=== PATIENT | female | born 1960 | race Two or more races ===

== ENCOUNTER 2021-08-04 22:57 | Emergency (ER) | payer MEDICARE, OTHER ==
[~2021-08-04] VITALS: Ht 157.5 cm; Wt 61.2 kg
[2021-08-05 01:04] LABS: White Blood Cell 11.8 10^3/uL (4.4-10.8)
[2021-08-05 01:06] LABS: Basophils # (auto) 0.1 10 ^3/uL (0-0.2); Basophils % (auto) 0.7 % (0.0-2.0); Eosinophils # (auto) 0.2 10 ^3/uL (0-0.8); Eosinophils % (auto) 2.1 % (0.0-7.0); Hemoglobin 12.1 g/dL (12.2-16.2); Lymphocytes # (auto) 2.8 10 ^3/uL (0.4-5.4); Lymphocytes % (auto) 23.8 % (10.0-50.0); Mean Corpuscular Hgb Conc. 33.6 g/dL (32.0-36.0); Mean Corpuscular Volume 83.2 fL (80.0-100.0); Monocytes # (auto) 0.8 10 ^3/uL (0-1.3); Monocytes % (auto) 6.8 % (0.0-12.0); Neutrophils # (auto) 7.9 10 ^3/uL (1.6-8.6); Neutrophils % (auto) 66.6 % (37.0-80.0); Red Blood Cells 4.32 10^6/uL (4.0-5.20)
[2021-08-05 01:20] LABS: INR 0.99 (0.9-1.15); Partial Thromboplastin Time 28.6 sec (23.6-33.0)
[2021-08-05 01:29] LABS: Albumin 3.3 g/dL (3.4-5.0); BUN/Creatinine Ratio 17.1; Calcium 8.6 mg/dL (8.5-10.1); Potassium 4.5 mmol/L (3.5-5.1)
[2021-08-05 01:32] LABS: Bilirubin, Total 0.2 mg/dL (0.2-1.0); Total Protein 7.7 g/dL (6.4-8.2)
[2021-08-05] MEDS ORDERED: methylPREDNISolone SOD SUCC 125 MG/2 ML VL IV ONE ×2 (04:45)
[2021-08-05] MEDS ORDERED: PRED20TA2 PO (05:37)
[2021-08-05 05:51] VITALS: BP 117/56
== END 2021-08-05 05:57 | disposition home or self-care (01) ==
LOC: EDBD 22:57 → ER 23:01
DX: K92.2 Gastrointestinal hemorrhage, unspecified (principal); J44.1 Chronic obstructive pulmonary disease with (acute) exacerbation; E11.9 Type 2 diabetes mellitus without complications; I10 Essential (primary) hypertension; Z88.0 Allergy status to penicillin; Z88.1 Allergy status to other antibiotic agents; Z88.6 Allergy status to analgesic agent
CPT/HCPCS: 36415; 71045; 80053; 85025; 85610; 85730; 96374; 99284; J2930

== ENCOUNTER → 2023-01-22 | Emergency (ER) | payer OTHER ==
[~2023-01-22] VITALS: Ht 149.9 cm; Wt 53.1 kg
[~2023-01-22] MED LIST: ACET-1080 PO; HYDR-4798 PO; HYDROcodone-ACET 5/325MG TAB PO ONE; MELO7.5T7 PO; METH-1181 PO; PRED20TA2 PO
[2023-01-22 17:24] VITALS: BP 133/63; PULSE 63; RESP 18; O2SAT 98
== END | disposition home or self-care (01) ==
LOC: ER 14:41
DX: S16.1XXA Strain of muscle, fascia and tendon at neck level, initial encounter (principal); S30.0XXA Contusion of lower back and pelvis, initial encounter; R51.9 Headache, unspecified; I10 Essential (primary) hypertension; E11.9 Type 2 diabetes mellitus without complications; Z79.899 Other long term (current) drug therapy; Z88.0 Allergy status to penicillin; Z88.1 Allergy status to other antibiotic agents; Z88.8 Allergy status to other drugs, medicaments and biological substances; W01.0XXA Fall on same level from slipping, tripping and stumbling without subsequent striking against object, initial encounter; Y93.89 Activity, other specified; Y92.89 Other specified places as the place of occurrence of the external cause; Y99.8 Other external cause status
CPT/HCPCS: 70450; 72040; 72220

== ENCOUNTER 2023-11-19 19:41 | Emergency (ER) | payer OTHER, MEDICAID ==
[~2023-11-19] VITALS: Ht 139.7 cm; Wt 49.0 kg
[~2023-11-19 19:41] MED LIST changes: -HYDR-4798 PO; -HYDROcodone-ACET 5/325MG TAB PO ONE; -MELO7.5T7 PO
[2023-11-19 19:59] VITALS: BP 109/71; PULSE 86; RESP 18; O2SAT 96
[2023-11-19] MEDS: ACETAMINOPHEN 325 MG TAB PO ONE (23:31)
== END 2023-11-19 23:43 | disposition home or self-care (01) ==
LOC: ER 19:41
DX: S16.1XXA Strain of muscle, fascia and tendon at neck level, initial encounter (principal); S39.012A Strain of muscle, fascia and tendon of lower back, initial encounter; S80.12XA Contusion of left lower leg, initial encounter; W18.09XA Striking against other object with subsequent fall, initial encounter; Y93.89 Activity, other specified; Y92.89 Other specified places as the place of occurrence of the external cause; Y99.8 Other external cause status
CPT/HCPCS: 72125; 72128; 72131; 73030; 73590

== ENCOUNTER 2024-03-30 12:43 | Emergency (ER) | payer OTHER, MEDICAID ==
[~2024-03-30] VITALS: Ht 149.9 cm; Wt 45.0 kg
--- NOTE | 2024-03-30 14:21 | ED.PDOC ---
HPI (NEURO) HPI Comments 63-year-old female patient presents to the emergency room for head pain. Patient reports pain and tenderness to the posterior portion of the head patient states that she was in the shower when she slipped and fell hitting the back of her head on the edge of the bathtub. Patient reports loss of consciousness. Patient states that when she woke up she could barely get off of the fingers and vomited more than 5 times. Patient states that she was unable to come in to the hospital yesterday due to being able to drive. Chief Complaint: Fall Injury Time Seen by MD: 13:15 Primary Care Provider: katherine Rodriguez Notes: Nurses Notes, Medications Mode of Arrival: Ambulatory Past Medical History PAST MEDICAL HISTORY: DM, HTN Surgical History: Appendectomy, Hysterectomy [employer] History: No Pertinent [employer] History Family History Family History: Reviewed,noncontributory to illness, Family hx of Cancer Social History Smoker: Cigarettes Alcohol: Denies ETOH Use Drugs: Denies Drug Use Lives In: Home Constitutional: denies: chills, diaphoresis, fatigue, fever, malaise, sweats, weakness, others EENTM: reports: blurred vision Respiratory: denies: cough, hemoptysis, orthopnea, SOB at rest, shortness of breath, SOB with excertion, stridor, wheezing, others Cardiovascular: denies: chest pain, dizzy spells, diaphoresis, Dyspnea on exertion, edema, irregular heart beat, left arm pain, lightheadedness, palpitations, PND, syncope, others Gastrointestinal: denies: abdomen distended, abdominal pain, blood streaked bowels, constipated, diarrhea, dysphagia, difficulty swallowing, hematemesis, melena, nausea, poor appetite, poor fluid intake, rectal bleeding, rectal pain, vomiting, others Genitourinary: denies: abnormal vagina bleeding, burning, dyspareunia, dysuria, flank pain, frequency, hematuria, incontinence, pain, , vagina discharge, urgency, others Neurological: reports: dizziness, headache Musculoskeletal: denies: back pain, gout, joint pain, joint swelling, muscle pain, muscle stiffness, neck pain, others Integumetry: denies: bruises, change in color, change in hair/nails, dryness, laceration, lesions, lumps, rash, wounds, others Allergic/Immunocompromised: denies: Difficulty Healing, Frequent Infections, Hives, Itching, others Hematologic/Lymphatic: denies: anemia, blood clots, easy bleeding, easy bruising, swollen glands, others Endocrine: denies: excessive hunger, excessive sweating, excessive thirst, excessive urination, flushing, intolerance to cold, intolerance to heat, unexplained weight gain, unexplained weight loss, others Psychiatric: denies: anxiety, bipolar disorder, depression, hopeless, panic disorder, schizophrenia, sleepless, suicidal, others All Other Systems: Reviewed and Negative Physical Exam Exam Comments 63-year-old female sitting up in chair. Patient ambulates with a steady gait. Patient has mild swelling to the posterior portion of the head. Patient has tenderness with palpation to the upper posterior portion of the head. Patient complains of nausea and vomiting yesterday. Patient denies any nausea today. Patient is complaining of the headache. Patient complaining of blurry vision. Patient complaining of lateral neck pain. Has no midline tenderness in the neck. No neuro deficits noted. PERRLA, no barry signs noted. General Appearance: No Apparent Distress, Normal HEENT: Head (Tenderness to the posterior portion of the head), Normal ENT Inspection, Pharynx Normal, TMs Normal Neck: Full Range of Motion, Normal Inspection, Tender Lateral (Right and left ) Respiratory: Chest Non-Tender, Lungs Clear, No Accessory Muscle Use, No Respiratory Distress, Normal Breath Sounds Cardiovascular: No Edema, No JVD, No Murmur, No Gallop, Normal Peripheral Pulses, Regular Rate/Rhythm Breast Exam: Deferred Gastrointestinal: No Organomegaly, Non Tender, No Pulsatile Mass, Normal Bowel Sounds, Soft Genitalia: Deferred Pelvic: Deferred Rectal: Deferred Extremities: No calf tenderness, Normal capillary refill, Normal inspection, N ormal range of motion, Non-tender, No pedal edema Musculoskeletal : Apperance: Normal Neurologic: Alert, simulation technician II-XII nml as Tested, No Motor Deficits, Normal Affect, Normal Mood, No Sensory Deficits Cerebellar Function: Normal Reflexes: Normal Skin: Dry, Normal Color, Warm Lymphatic: No Adenopathy Was a procedure done? Was a procedure done?: No Differential Diagnosis (SZ) Seizure: Closed Head Injury CVA: Other (NA) General Weakness: N/A Headache: Closed Head Injury, Post-Traumatic X-Ray, Labs, Meds, VS Vital Signs Date Time Temp Pulse Resp B/P (MAP) Pulse Ox O2 Delivery O2 Flow Rate FiO2 03/30/24 14:59 77 16 95 Room Air* 0 21 03/30/24 14:59 98.1 80 16 131/59 (83) 95 98.1 03/30/24 13:13 99.3 87 20 137/73 (94) [address] Godinez at 2:50 p.m.. Patient to be transferred due to traumatic head injury with a subdural hematoma. PATIENT: BRIAN MENA ACCT: [id number] UNIT: [id number] : 1960 LOC: ER ROOM / BED: / AGE / SEX: 63 / F ADM STATUS: REG ER SERVICE 141 ORDERING PHYSICIAN: GILBERT BURTON PROCEDURE(s): HWOCT - HEAD WITHOUT CONTRAST REASON: pain, trauma, LOC, vomiting ORDER NUMBER(s): [id number], ACCESSION NUMBER(s): [id number] EXAM: CT HEAD WITHOUT CONTRAST HISTORY: pain, trauma, LOC, vomiting COMPARISON: CT CERVICAL WITHOUT CONTRAST on DOS: 11/19/23, CT HEAD WITHOUT CONTRAST on DOS: 01/22/23 TECHNIQUE: Axial images of the head were obtained and reformatted in coronal and sagittal planes. All CT scans at this medical facility are performed using dose modulation techniques as appropriate to a performed exam including the following: Automated exposure control was utilized; adjustment of the MA and/or KV according to patient size; and use of iterative reconstruction technique. CT Dose: CTDI volume is 52.16 mGy. Dose-length product is 923.68 mGy*cm FINDINGS: There is hyperdense subdural hematoma along the right cerebral convexity measuring 7 mm in maximum diameter. There is regional mass effect with sulcal effacement in the right cerebrum. There is approximately 4-5 mm fxayj-ij-gbvc midline shift. There is no evidence of an intracranial mass. There is no hydrocephalus. The reynaga-white matter differentiation is maintained.. The visualized paranasal sinuses and mastoid air cells are clear. The calvarium is intact. IMPRESSION: 1. There is a hyperdense acute to subacute subdural hematoma along the right cerebral convexity measuring 7 mm in maximum diameter. There is regional mass effect with sulcal effacement and approximately 4-5 mm oftso-go-eawo midline shift. The results were discussed with the nurse practitioner by Dr. Bernard Justin on 03/30/2024, 2:45 p.m.. HS:Y ATED BY: BERNARD JUSTIN MD DICTATED DATE/TIME: 03/30/241445 SIGNED BY: BERNARD JUSTIN MD SIGNED DATE/TIME: 03/30/241445 CC: X-Ray, Labs, Meds, VS Comment The results were discussed with the nurse practitioner by Dr. Bernard Justin on 03/30/2024, 2:45 p.m. Report given to Terry Wheat, trauma doctor at [facility] regarding recheck Mena at 2:52pm. Dr. Borjas at [facility] states patient will be accepted at [facility] for transfer Pt transferred to the Main ER at 2:58pm. Time of 1ST Reevaluation: 14:53 Reevaluation 1ST: Unchanged Patient Education/Counseling: Diagnosis, Treatment, Prognosis Family Education/Counseling: No Family Present Departure 1 Departure Time of Disposition: 14:56 Impression: Primary Impression: Subdural hematoma Additional Impressions: Neck pain on left side Neck pain on right side Disposition: 09 ADMITTED INPATIENT Condition: Guarded Discharged With: Self Critical Care Note Critical Care Time?: No Stability Stability form required: No Heart Score Heart Score: Heart Score Response (Comments) Value History N/A 0 EKG N/A 0 Age N/A 0 Risk Factors N/A 0 Troponin N/A 0 Total 0 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
--- NOTE | 2024-03-30 14:48 | DVH ---
EXAM: CT HEAD WITHOUT CONTRAST HISTORY: pain, trauma, LOC, vomiting COMPARISON: CT CERVICAL WITHOUT CONTRAST on DOS: 11/19/23, CT HEAD WITHOUT CONTRAST on DOS: 01/22/23 TECHNIQUE: Axial images of the head were obtained and reformatted in coronal and sagittal planes. All CT scans at this medical facility are performed using dose modulation techniques as appropriate t o a performed exam including the following: Automated exposure control was utilized; adjustment of th e MA and/or KV according to patient size; and use of iterative reconstruction technique. CT Dose: CTDI volume is 52.16 mGy. Dose-length product is 923.68 mGy*cm FINDINGS: There is hyperdense subdural hematoma along the right cerebral convexity measuring 7 mm in maximum di ameter. There is regional mass effect with sulcal effacement in the right cerebrum. There is approxi mately 4-5 mm fhvjg-rr-fpqb midline shift. There is no evidence of an intracranial mass. There is no hydrocephalus. The reynaga-white matter differentiation is maintained.. The visualized paranasal sinuses and mastoid air cells are clear. The calvarium is intact. IMPRESSION: 1. There is a hyperdense acute to subacute subdural hematoma along the right cerebral convexity measu ring 7 mm in maximum diameter. There is regional mass effect with sulcal effacement and approximatel y 4-5 mm avpmg-hk-bnvb midline shift. The results were discussed with the nurse practitioner by Dr. Bernard Justin on 03/30/2024, 2:45 p.m.. HS:Y
[2024-03-30 14:59] VITALS: PULSE 77; RESP 16; O2SAT 95
[2024-03-30] MEDS: MORPHINE SULFATE INJ 2 MG/ml SYRG IV ONE (15:12)
[2024-03-30] MEDS: ONDANSETRON HCL 4 MG/2 ML VIAL IV ONE (15:13)
[2024-03-30 15:28] VITALS: TEMP 98.1; O2SAT 95
[2024-03-30 15:30] VITALS: BP 108/51; PULSE 78; RESP 16
== END 2024-03-30 15:57 | disposition short-term general hospital (02) ==
LOC: ER 12:43
DX: S06.5XAA Traumatic subdural hemorrhage with loss of consciousness status unknown, initial encounter (principal); M54.2 Cervicalgia; I10 Essential (primary) hypertension; F17.210 Nicotine dependence, cigarettes, uncomplicated; E11.9 Type 2 diabetes mellitus without complications; Z90.49 Acquired absence of other specified parts of digestive tract; Z90.710 Acquired absence of both cervix and uterus; W01.0XXA Fall on same level from slipping, tripping and stumbling without subsequent striking against object, initial encounter; Y93.89 Activity, other specified; Y92.89 Other specified places as the place of occurrence of the external cause; Y99.8 Other external cause status
CPT/HCPCS: 70450; 96374; 96375; 99285; J2270; J2405

== ENCOUNTER 2024-04-25 19:27 | Emergency (ER) | payer OTHER, MEDICAID ==
[~2024-04-25] VITALS: Ht 152.4 cm; Wt 45.4 kg
--- NOTE | 2024-04-25 20:28 | ED.PDOC ---
History of Present Illness HPI Comments 63 y/o F, with a Hx of COPD, DM, HTN, neck fusion, back surgery, and craniectomy s/p intracranial hemorrhage, is BIBA for c/o lower back pain, today. Per EMS report, patient called, due to being no longer able to tolerate pain, this evening, following initial unprovoked onset, last night. Patient states on pain worsening with movement and standing and improving with laying down and resting. She comments on no recent injuries or strenuous activities and admits to recent craniectomy s/p intracranial hemorrhage performed at [facility] 2x weeks ago. Patient denies having any weakness, numbness, tingling, headache, or other associated symptoms or modifiers at this time. Chief Complaint: Back Pain Time Seen by MD: 19:50 Primary Care Provider: katherine Rodriguez Notes: Nurses Notes, Billet Recorder Notes, Medications, Allergies Allergies: Coded Allergies: Cortisone (Verified Allergy, Unknown, 09/24/17) Duloxetine (Verified Allergy, Unknown, 09/24/17) FD&C Blue #2 (Indigotine) (Verified Allergy, Unknown, 09/24/17) Ibuprofen (Verified Allergy, Unknown, 09/24/17) Penicillins (Verified Allergy, Unknown, 09/24/17) Tetracycline (Verified Allergy, Unknown, 09/24/17) Home Meds Active Scripts Methocarbamol (Methocarbamol) 500 Mg Tab, 500 MG PO BID, #20 TAB Prov:QUENTIN MERCHANT 01/22/23 Acetaminophen (Tylenol 8 Hour Arthritis) 650 Mg Tab, 650 MG PO TID, #30 TAB Prov:QUENTIN MERCHANT 01/22/23 Prednisone (Prednisone) 20 Mg Tab, 60 MG PO DAILY for 7 Days, #15 MG Prov:ADINA LUCIANO DO 08/05/21 Information Source: Patient, Emergency Med Personnel Mode of Arrival: EMS Severity: Moderate Timing: Days Duration: Since onset Prehospital treatment: 12 Lead EKG, Admin Secretary Review of Systems: REVIEW OF SYSTEMS: No fever, no chills, or fatigue HEENT: No sore throat, no earache, no congestion, no neck pain. Cardiac: No chest pain. No palpitations. Lungs: No shortness of breath, no cough. GI: No nausea, no vomiting, no diarrhea, no constipation, no abdominal pain : No dysuria, frequency, or urgency. No hematuria. Musculoskeletal: Lower back pain, no joint pain , no joint swelling, no extremity edema. Skin: No rash, no itching. Neuro: No headache, no dizziness, no weakness Vital Signs Vital Signs Date Time Temp Pulse Resp B/P (MAP) Pulse Ox O2 Delivery O2 Flow Rate FiO2 04/25/24 22:29 98.0 86 16 140/72 (94) 97 98.0 04/25/24 22:29 Room Air* 0 21 Physical Exam General: Awake, alert and oriented. No acute distress. Skin: Skin in warm, dry and intact. Appropriate color for ethnicity. HEENT: The head is normocephalic with exception of right-sided skull deformity noted Conjunctivae are clear without exudates or hemorrhage. Sclera is non- icteric. EOM are intact. No signs of nystagmus. Eyelids are normal in appearance without swelling or lesions. Oral mucosa is pink and moist Neck: The neck is supple with normal range of motion. No JVD. Cardiac: Heart rate and rhythm are normal. No murmurs, gallops, or rubs are auscultated. Respiratory: No signs of respiratory distress. Lung sounds are clear in all lobes bilaterally without rales, ronchi, or wheezes. Abdominal: Abdomen is soft, non-tender without distention. Bowel sounds are present and normoactive in all four quadrants. Extremities: Upper and lower extremities are atraumatic in appearance without deformity or edema. Positive straight leg test on left lower extremity. Good strengths in bilateral lower extremities Neurological: The patient is awake, alert and oriented to person, place, and time with normal speech. Speech is clear. There is no facial asymmetry. Good strengths in bilateral lower extremities Psychiatric: Appropriate mood and affect. Good judgement and insight. No visual or auditory hallucinations. Past Medical History PAST MEDICAL HISTORY: COPD, DM, HTN Past Medical History (Other): intracranial hemorrage Surgical History: Appendectomy, Hysterectomy Surgical History (Other): Cataract surgery, neck fusion, back surgery, bilateral breast lumpectomy, crainectomy s/p intracranial hemorrage at [facility] [employer]ER History: No Pertinent [employer] History Family History Family History: Reviewed,noncontributory to illness, Family hx of Cancer Social History Smoker: Cigarettes Alcohol: Denies ETOH Use Drugs: Denies Drug Use Lives In: Home Was a procedure done? Was a procedure done?: No EKG EKG : Pulse Rate (adult): 84 [place]: Normal Cardiac Rhythm: NSR Block: None Hypertrophy: None ST: Normal Differential Dx Considerations may include: musculoskeletal pain, sprain, dislocation, fracture, post-op complications, degenerative disc disease X-Ray, Labs, Meds, VS Vital Signs Date Time Temp Pulse Resp B/P (MAP) Pulse Ox O2 Delivery O2 Flow Rate FiO2 04/25/24 22:29 98.0 86 16 140/72 (94) 97 98.0 04/25/24 22:29 86 16 97 Room Air* 0 21 04/25/24 20:28 84 04/25/24 19:40 84 04/25/24 19:32 98.5 86 18 152/90 (110) 98 Lab Test 04/25/24 20:16 Range/Units White Blood Count 7.4 4.4-10.8 10^3/uL Red Blood Count 4.64 4.0-5.20 10^6/uL Hemoglobin 13.1 12.2-16.2 g/dL Hematocrit 39.5 36.0-46.0 % Mean Corpuscular Volume 85.1 80.0-100.0 fL Mean Corpuscular Hemoglobin 28.2 28.0-32.0 pg Mean Corpuscular Hemoglobin Concent 33.1 32.0-36.0 g/dL Red Cell Distribution Width 20.1 H 11.8-14.3 % Platelet Count 263 140-450 10^3/uL Mean Platelet Volume 7.4 6.9-10.8 fL Neutrophils (%) (Auto) 78.4 37.0-80.0 % Lymphocytes (%) (Auto) 8.0 L 10.0-50.0 % Monocytes (%) (Auto) 11.2 0.0-12.0 % Eosinophils (%) (Auto) 1.5 0.0-7.0 % Basophils (%) (Auto) 0.9 0.0-2.0 % Neutrophils # (Auto) 5.8 1.6-8.6 10 ^3/uL Lymphocytes # (Auto) 0.6 0.4-5.4 10 ^3/uL Monocytes # (Auto) 0.8 0-1.3 10 ^3/uL Eosinophils # (Auto) 0.1 0-0.8 10 ^3/uL Basophils # (Auto) 0.1 0-0.2 10 ^3/uL Nucleated Red Blood Cells 0.2 % Sodium Level 136 136-145 mmol/L Potassium Level 3.3 L 3.5-5.1 mmol/L Chloride Level 101 98-107 mmol/L Carbon Dioxide Level 26 20-31 mmol/L Anion Gap 9 5-15 Blood Urea Nitrogen 11 9-23 mg/dL Creatinine 0.70 0.550-1.02 mg/dL Glomerular Filtration Rate Calc 98 >90 mL/min BUN/Creatinine Ratio 15.7 10.0-20.0 Serum Glucose 191 H 74-106 mg/dL Calcium Level 9.4 8.7-10.4 mg/dL Total Bilirubin 0.2 0.2-1.0 mg/dL Aspartate Amino Transferase (AST) 124 H 13-40 U/L Alanine Aminotransferase (ALT) 44 H 7-40 U/L Alkaline Phosphatase 88 46-116 U/L C-Reactive Protein High Sensitivity 4.65 H <1.0 mg/dL Total Protein 7.1 5.7-8.2 g/dL Albumin 4.5 3.2-4.8 g/dL Current Medications Medications (Trade) Dose Ordered Sig/Elen Route Start Time Stop Time Status Last Admin Dexamethasone Sodium Phosphate (Decadron Injection) 10 mg ONCE ONCE IM 04/25/24 22:00 04/25/24 22:09 DC 04/25/24 22:54 [place] [id number] Ph: [phone] DIAGNOSTIC IMAGING Diagnostic Imaging Report : [id number] Signed PATIENT: BRIAN MENA ACCT: [id number] UNIT: [id number] : 1960 LOC: ER ROOM / BED: / AGE / SEX: 63 / F ADM STATUS: REG ER SERVICE 55 ORDERING PHYSICIAN: CONNIE DEVLIN MD PROCEDURE(s): LS2CT - LS SPINE WO CONTRAST REASON: Severe Low Back Pain ORDER NUMBER(s): [id number], ACCESSION NUMBER(s): [id number] CT LS SPINE WO CONTRAST INDICATION: Severe Low Back Pain EXAM DATE: 04/25/2024 08:41 PM COMPARISON: CT LS SPINE WO CONTRAST on DOS: 11/19/23 RADIATION DOSE: CTDIvol: 9.33 mGy, DLP: 297.44 mGy*cm Technique: Utilizing the CT scanner, contiguous axial scans were obtained through the lumbar spine. Coronal and sagittal reformatted images were then generated. All CT scans at this medical facility are performed using dose modulation techniques as appropriate to a performed exam including the following: Automated exposure control was utilized; adjustment of the MA and/or KV according to patient size; and use of iterative reconstruction technique. FINDINGS: 5 qew-iwc-kxobenj lumbar-type vertebrae. Minimal levoconvex curvature of the lumbar spine. Vertebral body heights are maintained. Diffuse demineralization. No evidence of acute traumatic fractures . Grade 1 anterolisthesis of L4 on L5. L1-L2: No significant spinal canal or neural foramina stenosis. L2-L3: Minimal posterior disc bulge without significant spinal canal or neural foramina stenosis. L2-L3: Mild posterior disc bulge causing mild spinal canal stenosis with vlil-rj-eavzxomd right and mild left-sided neural foramina stenosis L3-L4: Mild posterior disc bulge with ligamentum flavum hypertrophy causing moderate to severe spinal canal stenosis with tsoo-pm-yiaqtdtm right and mild left-sided neural foramina stenosis. L4-L5: Mild posterior disc bulge with ligamentum flavum hypertrophy causing mild spinal canal stenosis with severe left and mild right-sided neural foramina stenosis. L5-S1: Minimal posterior disc bulge without significant spinal canal stenosis. Uqyi-cy-mgddatkj left-sided neural foramina stenosis. Paraspinal muscles unremarkable. Coarse calcification within the left posterior pelvic soft tissues adjacent to the posterior iliac with hypertrophic bony changes. IMPRESSION: Moderate to severe spinal canal stenosis at L3-L4. Severe left-sided neural foramina stenosis at L4-L5. ATED BY: TANA OLIVEIRA DO DICTATED DATE/TIME: 04/25/242125 SIGNED BY: TANA OLIVEIRA DO SIGNED DATE/TIME: 04/25/242125 CC: Time of 1ST Reevaluation: 20:20 Reevaluation 1ST: Unchanged Patient Education/Counseling: Diagnosis, Treatment Family Education/Counseling: No Family Present Departure 1 Departure Time of Disposition: 00:56 Impression: Primary Impression: Low back pain Additional Impression: Spinal stenosis Disposition: 07 LEFT AWOL/ELOPED Condition: Stable Comments 63 year old female presented with acute on chronic low back pain. CT results discussed with patient. She reports she is somewhat improved after treatment, is viktoria to stand from chair with some difficulty. Additional pain medication ordered. Discussed with patient's who states he believes patient was diagnosed with a DVT but is unsure of what blood thinner she was prescribed and states patient ran out of medication. He requested an US to r/o DVT. We attempted to contact [facility] for records but were unable to obtain them. Patient eloped from the emergency department prior to receiving ultrasound. Critical Care Note Critical Care Time?: No Stability Stability form required: No Heart Score Heart Score: Heart Score Response (Comments) Value History N/A 0 EKG N/A 0 Age N/A 0 Risk Factors N/A 0 Troponin N/A 0 Total 0 I personally scribed for CONNIE DEVLIN MD ([email or web address]) on 04/25/24 at 20:28. Electronically submitted by Segun Dee ([email or web address]). I personally scribed for CONNIE DEVLIN MD ([email or web address]) on 04/26/24 at 02:00. Electronically submitted by Segun Dee ([email or web address]). CONNIE DEVLIN MD Apr 25, 2024 20:28
[2024-04-25 20:29] LABS: Basophils # (auto) 0.1 10 ^3/uL (0-0.2); Basophils % (auto) 0.9 % (0.0-2.0); Eosinophils # (auto) 0.1 10 ^3/uL (0-0.8); Eosinophils % (auto) 1.5 % (0.0-7.0); Hematocrit 39.5 % (36.0-46.0); Hemoglobin 13.1 g/dL (12.2-16.2); Lymphocytes # (auto) 0.6 10 ^3/uL (0.4-5.4); Mean Corpuscular Hemoglobin 28.2 pg (28.0-32.0); Mean Corpuscular Hgb Conc. 33.1 g/dL (32.0-36.0); Mean Corpuscular Volume 85.1 fL (80.0-100.0); Monocytes # (auto) 0.8 10 ^3/uL (0-1.3); Monocytes % (auto) 11.2 % (0.0-12.0); Neutrophils # (auto) 5.8 10 ^3/uL (1.6-8.6); Neutrophils % (auto) 78.4 % (37.0-80.0); Nucleated Red Blood Cells % 0.2 %; Platelet Count (auto) 263 10^3/uL (140-450); Red Blood Cells 4.64 10^6/uL (4.0-5.20); Red Cell Distribution Width 20.1 % (11.8-14.3); White Blood Cell 7.4 10^3/uL (4.4-10.8)
[2024-04-25 20:49] LABS: Albumin 4.5 g/dL (3.2-4.8); Alkaline Phosphatase 88 U/L (46-116); Anion Gap 9 (5-15); BUN/Creatinine Ratio 15.7 (10.0-20.0); Blood Urea Nitrogen 11 mg/dL (9-23); Calcium 9.4 mg/dL (8.7-10.4); Carbon Dioxide 26 mmol/L (20-31); Chloride 101 mmol/L (98-107); Total Protein 7.1 g/dL (5.7-8.2)
[2024-04-25 20:57] LABS: Sodium 136 mmol/L (136-145)
[2024-04-25 20:58] LABS: Alanine Aminotransferase 44 U/L (7-40); Aspartate Aminotransferase 124 U/L (13-40); Bilirubin, Total 0.2 mg/dL (0.2-1.0); CRP High Sensitivity 4.65 mg/dL (<1.0); Glucose 191 mg/dL (74-106); Potassium 3.3 mmol/L (3.5-5.1)
--- NOTE | 2024-04-25 21:29 | DVH ---
CT LS SPINE WO CONTRAST INDICATION: Severe Low Back Pain EXAM DATE: 04/25/2024 08:41 PM COMPARISON: CT LS SPINE WO CONTRAST on DOS: 11/19/23 RADIATION DOSE: CTDIvol: 9.33 mGy, DLP: 297.44 mGy*cm Technique: Utilizing the CT scanner, contiguous axial scans were obtained through the lumbar spine. C oronal and sagittal reformatted images were then generated. All CT scans at this medical facility are performed using dose modulation techniques as appropriate t o a performed exam including the following: Automated exposure control was utilized; adjustment of th e MA and/or KV according to patient size; and use of iterative reconstruction technique. FINDINGS: 5 gcz-kwk-bvenhot lumbar-type vertebrae. Minimal levoconvex curvature of the lumbar spine. Vertebral body heights are maintained. Diffuse demineralization. No evidence of acute traumatic fractures . G rade 1 anterolisthesis of L4 on L5. L1-L2: No significant spinal canal or neural foramina stenosis. L2-L3: Minimal posterior disc bulge without significant spinal canal or neural foramina stenosis. L2-L3: Mild posterior disc bulge causing mild spinal canal stenosis with ndbf-kk-ipklclyf right and m ild left-sided neural foramina stenosis L3-L4: Mild posterior disc bulge with ligamentum flavum hypertrophy causing moderate to severe spinal canal stenosis with xtoz-wc-yagyxvvu right and mild left-sided neural foramina stenosis. L4-L5: Mild posterior disc bulge with ligamentum flavum hypertrophy causing mild spinal canal stenosi s with severe left and mild right-sided neural foramina stenosis. L5-S1: Minimal posterior disc bulge without significant spinal canal stenosis. Tfom-qc-yhqwbjxs left- sided neural foramina stenosis. Paraspinal muscles unremarkable. Coarse calcification within the left posterior pelvic soft tissues a djacent to the posterior iliac with hypertrophic bony changes. IMPRESSION: Moderate to severe spinal canal stenosis at L3-L4. Severe left-sided neural foramina stenosis at L4-L5.
[2024-04-25 22:29] VITALS: BP 140/72; PULSE 86; RESP 16; TEMP 98; O2SAT 97
[2024-04-25] MEDS: HYDROcodone-ACET 10/325MG TAB PO ONE (22:53)
[2024-04-25] MEDS: LIDOCAINE 5% TOPICAL PATCH TOP ONE (22:53)
[2024-04-25] MEDS: DexAMETHasone SOD PHOS 10MG/1ML VIAL INJ IM ONE ×2 (22:54)
[2024-04-25] MEDS ORDERED: KETOROLAC TROMETH 30 MG/ML 1ML VIAL IM ONE (23:45)
--- NOTE | 2024-04-26 13:44 | ECG ---
[facility] Test Date: 2024-04-25 Test Time: 19:40:55 Pat Name: BRIAN MENA Department: ER Room: Gender: F Acute Care Physician: : 1960 Requested By: CONNIE DEVLIN Order Number: [id number] Reading MD: Joshua Roth Measurements Intervals [place] Rate: 84 P: 44 RI: 136 QRS: 69 QRSD: 86 T: 62 QT: 359 QTc: 425 Interpretive Statements Sinus rhythm Electronically Signed On 04-29-2024 10:35:43 PST by Joshua Roth Please click the below link to view image of tracing.
== END 2024-04-26 03:17 | disposition left against medical advice (07) ==
LOC: EDBD 19:27 → ER 19:27
DX: M54.50 Low back pain, unspecified (principal); M48.061 Spinal stenosis, lumbar region without neurogenic claudication; I10 Essential (primary) hypertension; E11.9 Type 2 diabetes mellitus without complications; J44.9 Chronic obstructive pulmonary disease, unspecified; F17.210 Nicotine dependence, cigarettes, uncomplicated; Z79.52 Long term (current) use of systemic steroids; Z88.0 Allergy status to penicillin; Z88.1 Allergy status to other antibiotic agents; Z88.6 Allergy status to analgesic agent; Z90.49 Acquired absence of other specified parts of digestive tract; Z90.710 Acquired absence of both cervix and uterus; Z79.899 Other long term (current) drug therapy
CPT/HCPCS: 36415; 72131; 80053; 85025; 86141; 93005; 96372; 99285; J1100

== ENCOUNTER 2024-12-27 14:18 | Emergency (ER) | payer OTHER, MEDICAID ==
[~2024-12-27] VITALS: Ht 149.9 cm; Wt 45.9 kg
--- NOTE | 2024-12-27 15:54 | ED.PDOC ---
Benjamín. trauma (HPI) HPI Comments 64-year-old female presents to the ER with a chief complaint of a fall injury. Patient reported that she fell off a chair and landed on her right knee and right elbow on Friday of 12/24/2024. Today she complains of pain and swelling yesterday for which she put ice on which subside of the swelling. Patient still has knee and elbow pain. Rated as moderate and worsens with movement. Denies any other symptoms at this time. Chief Complaint: Fall Injury Time Seen by MD: 15:50 Primary Care Provider: katherine Rodriguez notes: Nurses Notes, Medications, Allergies Allergies: Coded Allergies: Cortisone (Verified Allergy, Unknown, 09/24/17) Duloxetine (Verified Allergy, Unknown, 09/24/17) FD&C Blue #2 (Indigotine) (Verified Allergy, Unknown, 09/24/17) Ibuprofen (Verified Allergy, Unknown, 09/24/17) Penicillins (Verified Allergy, Unknown, 09/24/17) Tetracycline (Verified Allergy, Unknown, 09/24/17) Home Meds Active Scripts Diclofenac Sodium (Topical) (Voltaren Arthritis Pain) 1 % Gel, 2 GRAMS EX QID for 30 Days, #60 GRAMS 0 Refills Prov:ALFREDO PALACIO NP 12/27/24 Methocarbamol (Methocarbamol) 500 Mg Tab, 500 MG PO BID, #20 TAB Prov:QUENTIN MERCHANT 01/22/23 Acetaminophen (Tylenol 8 Hour Arthritis) 650 Mg Tab, 650 MG PO TID, #30 TAB Prov:QUENTIN MERCHANT 01/22/23 Prednisone (Prednisone) 20 Mg Tab, 60 MG PO DAILY for 7 Days, #15 MG Prov:ADINA LUCIANO DO 08/05/21 Information Source: Patient Mode of Arrival: Ambulatory Severity: Moderate Timing: Days Duration: Since onset, Days Prehospital treatment: None Location: (R) Elbow, (R) Knee Location of laceration: None Mechanism: Fall Associated signs and symtoms: None Past Medical History PAST MEDICAL HISTORY: Denies Surgical History: Denies all surgeries 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 WASHER 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: 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 Hx Family History Family History: Reviewed,noncontributory to illness, Unknown Social History Smoker: Non-Smoker Alcohol: Denies ETOH Use Drugs: Denies Drug Use Lives In: Home Constitutional: denies: chills, diaphoresis, fatigue, fever, malaise, sweats, weakness, others EENTM: denies: blurred vision, double vision, ear bleeding, ear discharge, ear drainage, ear pain, ear ringing, eye pain, eye redness, hearing loss, mouth pain, mouth swelling, nasal discharge, nose bleeding, nose congestion, nose pain, photophobia, tearing, throat pain, throat swelling, voice changes, others Respiratory: denies: cough, hemoptysis, orthopnea, SOB at rest, shortness of breath, SOB with excertion, stridor, wheezing, others Cardiovascular: denies: chest pain, dizzy spells, diaphoresis, Dyspnea on exertion, edema, irregular heart beat, left arm pain, lightheadedness, palpitations, PND, syncope, others Gastrointestinal: denies: abdomen distended, abdominal pain, blood streaked bowels, constipated, diarrhea, dysphagia, difficulty swallowing, hematemesis, melena, nausea, poor appetite, poor fluid intake, rectal bleeding, rectal pain, vomiting, others Genitourinary: denies: abnormal vagina bleeding, burning, dyspareunia, dysuria, flank pain, frequency, hematuria, incontinence, pain, , vagina discharge, urgency, others Neurological: denies: dizziness, fainting, headache, left sided numbness, left sided weakness, numbness, paresthesia, pre-existing deficit, right sided numbness, right sided weakness, seizure, speech problems, tingling, tremors, weakness, others Musculoskeletal: reports: others (Right knee/right elbow pain); denies: back pain, gout, joint pain, joint swelling, muscle pain, muscle stiffness, neck pain Integumetry: denies: bruises, change in color, change in hair/nails, dryness, laceration, lesions, lumps, rash, wounds, others Allergic/Immunocompromised: denies: Difficulty Healing, Frequent Infections, Hives, Itching, others Hematologic/Lymphatic: denies: anemia, blood clots, easy bleeding, easy bruising, swollen glands, others Endocrine: denies: excessive hunger, excessive sweating, excessive thirst, excessive urination, flushing, intolerance to cold, intolerance to heat, unexplained weight gain, unexplained weight loss, others Psychiatric: denies: anxiety, bipolar disorder, depression, hopeless, panic disorder, schizophrenia, sleepless, suicidal, others All Other Systems: Reviewed and Negative Physical Exam Exam Comments Full range of motion, no deformity General Appearance: No Apparent Distress, Normal HEENT: Head (Normocephalic atraumatic. No abrasions lacerations hematomas open wounds or tenderness to palpation), Normal ENT Inspection, Pharynx Normal, TMs Normal Neck: Full Range of Motion, Non-Tender, Normal, Normal Inspection Respiratory: Chest Non-Tender, Lungs Clear, No Accessory Muscle Use, No Respiratory Distress, Normal Breath Sounds Cardiovascular: No Edema, No JVD, No Murmur, No Gallop, Normal Peripheral Pulses, Regular Rate/Rhythm Breast Exam: Deferred Gastrointestinal: No Organomegaly, Non Tender, No Pulsatile Mass, Normal Bowel Sounds, Soft Genitalia: Deferred Pelvic: Deferred Rectal: Deferred Extremities: No calf tenderness, Normal capillary refill, Normal inspection, Normal range of motion, Non-tender, No pedal edema Musculoskeletal : Apperance: Normal Neurologic: Alert, scada engineer II-XII nml as Tested, No Motor Deficits, Normal Affect, Normal Mood, No Sensory Deficits Cerebellar Function: Normal Reflexes: Normal Skin: Dry, Normal Color, Warm Lymphatic: No Adenopathy Was a procedure done? Was a procedure done?: No Differential Diagnosis Multiple Trauma: Fractures Neck Injury: N/A X-Ray, Labs, Meds, VS Vital Signs Date Time Temp Pulse Resp B/P (MAP) Pulse Ox O2 Delivery O2 Flow Rate FiO2 12/27/24 17:21 97.9 66 17 136/67 (90) 97 97.9 12/27/24 17:21 66 16 97 Room Air 12/27/24 14:20 97.3 83 16 141/63 95 97.3 X-Ray, Labs, Meds, VS Comment 64-year-old female presents to the ER with a chief complaint of a fall injury. Patient arrives alert and oriented, ABC's intact, afebrile, vital signs stable, saturating well in room air Diagnostic imaging ordered by me and results interpreted by radiology : X-ray right knee x-ray right elbow ED workup: Defer further imaging and lab work for outpatient follow up at this time Disposition: Discharge. Strict return precautions discussed with the patient with full understanding. Supportive care advised (rest, ice, heat, NSAIDs, stretching exercises) Massage muscles with cold pack or ice for 20 minutes 4 times per day. Usually most useful if there is swelling during the first 48 hours Heating pad on the most painful area for 20 minutes to relieve muscle spasm Sleep and the most comfortable sleeping position (usually on the side with knees bent) Light stretching, no strenuous activity, avoid frequent bending, avoid carrying heavy objects Patient is stable for discharge at this time. External notes reviewed. Test results and diagnostic imaging interpreted. All diagnostic findings, discharge care, education and instructions provided Follow-up with PCP in 2 to 3 days Patient verbalized understanding and agreed to treatment plan Vital signs stable, afebrile, no acute distress noted Patient ambulatory with strong steady gait Advised to return precautions for any new or worsening symptoms, return to ER immediately for re-evaluation Patient is aware that the purpose of this visit was for an acute medical emergency requiring emergent stabilization. Chronic conditions, including malignancies have not been ruled out. Patient is instructed to follow up with PCP as directed and discharge instructions for continued care and workup. If radha ble to arrange follow-up, patient is to return to the emergency department for reassessment. Patient (parent or legal guardian if applicable) was given verbal and written discharge instructions and acknowledges understanding. Additional MDM Review of External, Non-ED records: External records reviewed. Discussion with independent historian (EMS, family) history obtained from the patient/parents (if applicable) at bedside Chronic conditions affecting care: None Social determinants of health affecting care: None Consideration of admission (observation or admission): I considered escalation of care to admission for this patient, however given the reassuring workup, the patient is safe for outpatient management. Discussion with the Radiology: No Tests considered but not performed: Prescription medication considered but not given: 12 lead EKG interpretation: Time of 1ST Reevaluation: 16:20 Reevaluation 1ST: Unchanged Patient Education/Counseling: Diagnosis, Treatment, Prognosis Family Education/Counseling: No Family Present Departure 1 Departure Time of Disposition: 17:08 Impression: Primary Impression: Fall Qualified Codes: W19.XXXA - Unspecified fall, initial encounter Additional Impressions: Elbow pain, right Knee pain, right Qualified Codes: M25.561 - Pain in right knee Disposition: 01 HOME / SELF CARE / HOMELESS Condition: Stable e-Prescriptions Diclofenac Sodium (Topical) (Voltaren Arthritis Pain) 1 % Gel 2 GRAMS EX QID for 30 Days, #60 GRAMS 0 Refills Prov: ALFREDO PALACIO NP 12/27/24 Critical Care Note Critical Care Time?: No Stability Stability form required: No Heart Score Heart Score: Heart Score Response (Comments) Value History N/A 0 EKG N/A 0 Age N/A 0 Risk Factors N/A 0 Troponin N/A 0 Total 0 I personally scribed for ALFREDO PALACIO NP ([email or web address]) on 12/27/24 at 15:54. Electronically submitted by Obdulio Regan ([email or web address]). ALFREDO PALACIO NP Dec 27, 2024 15:54
[2024-12-27] MEDS ORDERED: DICL1GEL59 EX (17:09)
[2024-12-27 17:21] VITALS: BP 136/67; PULSE 66; RESP 16; TEMP 97.9; O2SAT 97
--- NOTE | 2024-12-27 17:27 | DVH ---
CLINICAL INDICATION: fall TECHNIQUE: 3 radiographic views of the right elbow were obtained. Comparison: None FINDINGS/IMPRESSION: Antecubital fat pad is visualized mary is not appear displaced to suggest joint effusion. Arthritic changes are noted of the humeral ulnar joint space.
--- NOTE | 2024-12-27 17:28 | DVH ---
CLINICAL INDICATION: fall TECHNIQUE: 3 radiographic views of the right knee were obtained. Comparison: None FINDINGS/IMPRESSION: Bony alignment appears normal No findings to suggest fracture or dislocation. No radiographic findings to suggest joint effusion.
== END 2024-12-27 17:23 | disposition home or self-care (01) ==
LOC: ER 14:18
DX: M25.561 Pain in right knee (principal); M25.521 Pain in right elbow; Z79.899 Other long term (current) drug therapy; Z88.6 Allergy status to analgesic agent; Z88.1 Allergy status to other antibiotic agents; Z88.0 Allergy status to penicillin; Z79.52 Long term (current) use of systemic steroids; W07.XXXA Fall from chair, initial encounter; Y93.89 Activity, other specified; Y92.89 Other specified places as the place of occurrence of the external cause; Y99.8 Other external cause status
CPT/HCPCS: 73080; 73562

== ENCOUNTER 2025-01-21 15:56 | Emergency (ER) | payer OTHER, MEDICAID ==
[~2025-01-21] VITALS: Ht 139.7 cm; Wt 48.6 kg
[~2025-01-21 15:56] MED LIST changes: +DICL1GEL59 EX
[2025-01-21 16:25] LABS: Hemoglobin 12.4 g/dL (12.2-16.2); Nucleated Red Blood Cells % 0.1 %
[2025-01-21 16:27] LABS: Hematocrit 38.6 % (36.0-46.0); Mean Corpuscular Hemoglobin 24.9 pg (28.0-32.0); Mean Corpuscular Volume 77.5 fL (80.0-100.0)
--- NOTE | 2025-01-21 16:36 | DVH ---
CHEST RADIOGRAPH Indication: CP Technique: Single frontal view of the chest was obtained Comparison: CXRP on DOS: 08/05/21 FINDINGS: Lines and Tubes: None Lungs: No focal consolidation. Pleura: No effusion. No pneumothorax. Cardiomediastinal contours: Unremarkable Bones: Postop changes of the cervical spine. IMPRESSION: 1. No acute cardiopulmonary disease. 2. No significant change from 08/05/2021
[2025-01-21 16:41] LABS: Chloride 101 mmol/L (98-107); Potassium 4.2 mmol/L (3.5-5.1); Sodium 138 mmol/L (136-145)
[2025-01-21 16:42] LABS: Anion Gap 9 (5-15); Carbon Dioxide 28 mmol/L (20-31)
[2025-01-21 16:43] LABS: Calcium 9.3 mg/dL (8.7-10.4)
[2025-01-21 16:48] LABS: BUN/Creatinine Ratio 13.0 (10.0-20.0); Glucose 94 mg/dL (74-106)
--- NOTE | 2025-01-21 17:06 | ED.PDOC ---
HPI Comments 64-year-old female presents here with chest discomfort. She states it began yesterday around 3-4 p.m.. She states she was sitting when this started. Reports pain from her epigastric region and going all the way up to her chest. She states it was a sharp shooting pain that lasted just a sec. however she states this pain frequently came on lasted until the night and occurred this morning also. She states last time she felt this pain was 12:00 p.m. today which was proximally 5-1/2 hours ago. She states during that time the pain also went into her right jaw and right arm. She states currently she is chest pain- free. She does have a known history of smoking and history of hypertension. Has not been sick recently. No recent cough cold runny nose fevers or chills. Chief Complaint: Chest Pain Time Seen by MD: 17:30 Primary Care Provider: katherine Rodriguez Notes: Nurses Notes, Medications, Allergies Allergies: Coded Allergies: Cortisone (Verified Allergy, Unknown, 09/24/17) Duloxetine (Verified Allergy, Unknown, 09/24/17) FD&C Blue #2 (Indigotine) (Verified Allergy, Unknown, 09/24/17) Ibuprofen (Verified Allergy, Unknown, 09/24/17) Penicillins (Verified Allergy, Unknown, 09/24/17) Tetracycline (Verified Allergy, Unknown, 09/24/17) Home Meds Active Scripts Diclofenac Sodium (Topical) (Voltaren Arthritis Pain) 1 % Gel, 2 GRAMS EX QID for 30 Days, #60 GRAMS 0 Refills Prov:ALFREDO PALACIO NP 12/27/24 Methocarbamol (Methocarbamol) 500 Mg Tab, 500 MG PO BID, #20 TAB Prov:QUENTIN MERCHANT 01/22/23 Acetaminophen (Tylenol 8 Hour Arthritis) 650 Mg Tab, 650 MG PO TID, #30 TAB Prov:QUENTIN MERCHANT 01/22/23 Prednisone (Prednisone) 20 Mg Tab, 60 MG PO DAILY for 7 Days, #15 MG Prov:ADINA LUCIANO DO 08/05/21 Information Source: Patient Mode of Arrival: Ambulatory Severity: Moderate Timing: Days (1) Duration: Since onset Location: Substernal Radiation: Arm (R) Quality: Sharp Onset: At Rest Cardiac Risk Factors: None PE Risk Factors: None History of: None Associated Signs and Symptoms: None Past Medical History PAST MEDICAL HISTORY: HTN Past Medical History (Other): brain hemorrhage Surgical History: Denies all surgeries ROAD 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 OF 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 History: 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 all ROAD SUPER[employer] Hx Family History Family History: Reviewed,noncontributory to illness, Unknown Social History Smoker: Cigarettes Alcohol: Denies ETOH Use Drugs: Denies Drug Use Lives In: Home Constitutional: denies: chills, diaphoresis, fatigue, fever, malaise, sweats, weakness, others EENTM: denies: blurred vision, double vision, ear bleeding, ear discharge, ear drainage, ear pain, ear ringing, eye pain, eye redness, hearing loss, mouth pain, mouth swelling, nasal discharge, nose bleeding, nose congestion, nose pain, photophobia, tearing, throat pain, throat swelling, voice changes, others Respiratory: denies: cough, hemoptysis, orthopnea, SOB at rest, shortness of breath, SOB with excertion, stridor, wheezing, others Cardiovascular: reports: chest pain; denies: dizzy spells, diaphoresis, Dyspnea on exertion, edema, irregular heart beat, left arm pain, lightheadedness, palpitations, PND, syncope, others Gastrointestinal: denies: abdomen distended, abdominal pain, blood streaked bowels, constipated, diarrhea, dysphagia, difficulty swallowing, hematemesis, melena, nausea, poor appetite, poor fluid intake, rectal bleeding, rectal pain, vomiting, others Genitourinary: denies: abnormal vagina bleeding, burning, dyspareunia, dysuria, flank pain, frequency, hematuria, incontinence, pain, , vagina discharge, urgency, others Neurological: denies: dizziness, fainting, headache, left sided numbness, left sided weakness, numbness, paresthesia, pre-existing deficit, right sided numbness, right sided weakness, seizure, speech problems, tingling, tremors, weakness, others Musculoskeletal: denies: back pain, gout, joint pain, joint swelling, muscle pain, muscle stiffness, neck pain, others Integumetry: denies: bruises, change in color, change in hair/nails, dryness, laceration, lesions, lumps, rash, wounds, others Allergic/Immunocompromised: denies: Difficulty Healing, Frequent Infections, Hives, Itching, others Hematologic/Lymphatic: denies: anemia, blood clots, easy bleeding, easy bruising, swollen glands, others Endocrine: denies: excessive hunger, excessive sweating, excessive thirst, excessive urination, flushing, intolerance to cold, intolerance to heat, unexplained weight gain, unexplained weight loss, others Psychiatric: denies: anxiety, bipolar disorder, depression, hopeless, panic disorder, schizophrenia, sleepless, suicidal, others All Other Systems: Reviewed and Negative Physical Exam General Appearance: No Apparent Distress, Normal HEENT: Normal ENT Inspection, Pharynx Normal, TMs Normal Neck: Full Range of Motion, Non-Tender, Normal, Normal Inspection Respiratory: Chest Non-Tender, Lungs Clear, No Accessory Muscle Use, No Respiratory Distress, Normal Breath Sounds Cardiovascular: No Edema, No JVD, No Murmur, No Gallop, Normal Peripheral Pulses, Regular Rate/Rhythm Breast Exam: Deferred Gastrointestinal: No Organomegaly, Non Tender, No Pulsatile Mass, Normal Bowel Sounds, Soft Genitalia: Deferred Pelvic: Deferred Rectal: Deferred Extremities: No calf tenderness, Normal capillary refill, Normal inspection, Normal range of motion, Non-tender, No pedal edema Musculoskeletal : Apperance: Normal Neurologic: Alert, residential roofer II-XII nml as Tested, No Motor Deficits, Normal Affect, Normal Mood, No Sensory Deficits Cerebellar Function: Normal Reflexes: Normal Skin: Dry, Normal Color, Warm Lymphatic: No Adenopathy EKG EKG #1: Comments EKG 1. At 4:05 p.m. demonstrates a rate of [address] changes. EKG #2: Comments EKG number 2 at 4:53 p.m. rate of 87 sinus rhythm continues to use demonstrate nonspecific ST changes in the lateral leads. Was a procedure done? Was a procedure done?: No CP Differential Dx Differential Diagnosis: N/A Differential Diagnosis: N/A Differential Diagnosis: Angina, Aortic dissection, Chest Wall Pain, Esophageal reflux/spasm, Gastritis, Myocardial Infarction, Pneumonia, Pneumothorax, Pulmonary Embolus X-Ray, Labs, Meds, VS Vital Signs Date Time Temp Pulse Resp B/P (MAP) Pulse Ox O2 Delivery O2 Flow Rate FiO2 01/21/25 16:05 91 01/21/25 16:00 98.9 107 17 144/81 94 98.9 Lab Test 01/21/25 17:09 01/21/25 16:10 Range/Units Troponin I High Sensitivity < 3 L < 3 L </=34 ng/L White Blood Count 8.4 4.4-10.8 10^3/uL Red Blood Count 4.98 4.0-5.20 10^6/uL Hemoglobin 12.4 12.2-16.2 g/dL Hematocrit 38.6 36.0-46.0 % Mean Corpuscular Volume 77.5 L 80.0-100.0 fL Mean Corpuscular Hemoglobin 24.9 L 28.0-32.0 pg Mean Corpuscular Hemoglobin Concent 32.1 32.0-36.0 g/dL Red Cell Distribution Width 18.5 H 11.8-14.3 % Platelet Count 407 140-450 10^3/uL Mean Platelet Volume 7.0 6.9-10.8 fL Neutrophils (%) (Auto) 46.4 37.0-80.0 % Lymphocytes (%) (Auto) 41.9 10.0-50.0 % Monocytes (%) (Auto) 9.1 0.0-12.0 % Eosinophils (%) (Auto) 1.8 0.0-7.0 % Basophils (%) (Auto) 0.8 0.0-2.0 % Neutrophils # (Auto) 3.9 1.6-8.6 10 ^3/uL Lymphocytes # (Auto) 3.5 0.4-5.4 10 ^3/uL Monocytes # (Auto) 0.8 0-1.3 10 ^3/uL Eosinophils # (Auto) 0.1 0-0.8 10 ^3/uL Basophils # (Auto) 0.1 0-0.2 10 ^3/uL Nucleated Red Blood Cells 0.1 % Sodium Level 138 136-145 mmol/L Potassium Level 4.2 3.5-5.1 mmol/L Chloride Level 101 98-107 mmol/L Carbon Dioxide Level 28 20-31 mmol/L Anion Gap 9 5-15 Blood Urea Nitrogen 9 9-23 mg/dL Creatinine 0.69 0.550-1.02 mg/dL Glomerular Filtration Rate Calc 97 >90 mL/min BUN/Creatinine Ratio 13.0 10.0-20.0 Serum Glucose 94 74-106 mg/dL Calcium Level 9.3 8.7-10.4 mg/dL [facility] [id number] [place] [id number] Ph: [phone] DIAGNOSTIC IMAGING Diagnostic Imaging Report : [id number] Signed PATIENT: BRIAN MENA ACCT: [id number] UNIT: [id number] : 1960 LOC: ER ROOM / BED: / AGE / SEX: 64 / F ADM STATUS: REG ER SERVICE 1559 ORDERING PHYSICIAN: MAYA DUPONT MD PROCEDURE(s): CXRP - CHEST PORTABLE REASON: CP ORDER NUMBER(s): [id number], ACCESSION NUMBER(s): [id number] CHEST RADIOGRAPH Indication: CP Technique: Single frontal view of the chest was obtained Comparison: CXRP on DOS: 08/05/21 FINDINGS: Lines and Tubes: None Lungs: No focal consolidation. Pleura: No effusion. No pneumothorax. Cardiomediastinal contours: Unremarkable Bones: Postop changes of the cervical spine. IMPRESSION: 1. No acute cardiopulmonary disease. 2. No significant change from 08/05/2021 ATED BY: JUSTIN KAMARA Jr., DO DICTATED DATE/TIME: 01/21/251632 SIGNED BY: JUSTIN KAMARA Jr., SIGNED DATE/TIME: 01/21/251632 CC: 64-year-old female presents here with sharp shooting chest discomfort that started an epigastric region and went up. She states when the pain came on lasted a few sec but it was there the whole day. She states currently she has been chest pain-free times 5-1/2 hours. At this time I have ordered a CBC, BMP, troponin EKG and chest x-ray. CBC, BMP within normal limits. Troponin x2 is negative. EKG x2 is sinus rhythm with nonspecific ST changes. Chest x-ray with a normal limits. At this time patient has a heart score of 3. Patient prefers to go home. And given she is chest pain-free for several hours I have discharged the patient home. Advised her to however to return back to the ER if symptoms worsen or persist. Patient agreeable to the plan. Time of 1ST Reevaluation: 17:45 Reevaluation 1ST: Unchanged Patient Education/Counseling: Diagnosis, Treatment, Prognosis Family Education/Counseling: No Family Present SEPSIS Sepsis Screen Date sepsis recognized/suspect: Jan 21, 2025 Time Sepsis recognized/suspect: 1559 Recent Procedure: No On Antibiotic Therapy: No Respiratory Rate >20: No Heart Rate >90: Yes Temp<36 C (96.8 F) or >38.3 C: No SBP <90 or MAP <65 mmHG: No New Acute Mental Status Change: No Is the patient on CPAP, BIPAP,: No Physician Orders Urinalysis (01/21/25 15:59) Electrocardigram (01/21/25 15:59) Troponin-I Hs (01/21/25 18:59) Electrocardigram (01/21/25 16:59) Electrocardigram (01/21/25 18:59) Chest Portable (01/21/25 15:59) Vital Signs Date Time Temp Pulse Resp B/P (MAP) Pulse Ox O2 Delivery O2 Flow Rate FiO2 01/21/25 16:05 91 01/21/25 16:00 98.9 107 17 144/81 94 98.9 Laboratory Tests Test 01/21/25 16:10 White Blood Count 8.4 10^3/uL (4.4-10.8) Departure 1 Departure Time of Disposition: 17:52 Impression: Primary Impression: Atypical chest pain Disposition: HOME / SELF CARE / HOMELESS Condition: Critical Discharged With: Self Critical Care Note Critical Care Time?: No Stability Stability form required: No Heart Score Heart Score: Heart Score Response (Comments) Value History Slightly Suspicious 0 EKG Repolarization Disturb 1 Age 45-64 1 Risk Factors 1 or 2 risk factors 1 Troponin Normal limit 0 Total 3 I personally scribed for JOSE ALVAREZ MD ([email or web address]) on 01/21/25 at 17:06. Electronically submitted by Lucy King ([facility]). I personally scribed for JOSE ALVAREZ MD ([email or web address]) on 01/21/25 at 17:14. Electronically submitted by Lucy King ([facility]). I personally scribed for JOSE ALVAREZ MD ([email or web address]) on 01/21/25 at 17:45. Electronically submitted by Lucy King ([facility]). I personally scribed for JOSE ALVAREZ MD ([email or web address]) on 01/21/25 at 17:46. Electronically submitted by Lucy King ([facility]). JOSE ALVAREZ MD Jan 21, 2025 17:06
[2025-01-21 17:08] LABS: Blood Urea Nitrogen 9 mg/dL (9-23)
[2025-01-21 19:11] VITALS: BP 152/74; PULSE 87; RESP 18; TEMP 98.2; O2SAT 98
--- NOTE | 2025-01-22 07:04 | ECG ---
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
--- NOTE | 2025-01-22 07:05 | ECG ---
[facility] Test Date: 2025-01-21 Test Time: 16:53:30 Pat Name: BRIAN MENA Department: Room: Gender: F Epic Cadence Analyst: PHIL : 1960 Requested By: MAYA DUPONT Order Number: [id number] Reading MD: Joshua Roth Measurements Intervals [place] Rate: 87 P: 90 [place]: 162 QRS: 85 QRSD: 96 T: 86 QT: 338 QTc: 407 Interpretive Statements Sinus rhythm Right atrial enlargement Borderline right axis deviation Nonspecific T abnrm, anterolateral leads Electronically Signed On 01-24-2025 10:56:26 PST by Joshua Roth Please click the below link to view image of tracing.
== END 2025-01-21 19:15 | disposition home or self-care (01) ==
LOC: ER 15:56
DX: R07.89 Other chest pain (principal); M79.601 Pain in right arm; R68.84 Jaw pain; I10 Essential (primary) hypertension; F17.210 Nicotine dependence, cigarettes, uncomplicated; Z86.73 Personal history of transient ischemic attack (TIA), and cerebral infarction without residual deficits; Z98.890 Other specified postprocedural states; Z88.0 Allergy status to penicillin; Z88.1 Allergy status to other antibiotic agents; Z88.6 Allergy status to analgesic agent
CPT/HCPCS: 36415; 71045; 80048; 84484; 85025; 93005